=== PATIENT | female | born 1975 | race Hispanic/Latino ===

== ENCOUNTER 2023-06-22 07:00 | Day surgery (SDC) | payer OTHER ==
[2023-06-20 15:18] LABS: BASOPHILS # (AUTO) 0.08 K/uL (0.00-0.20); BASOPHILS % (AUTO) 0.4 % (0.0-5.0); EOSINOPHILS # (AUTO) 0.03 K/uL (0.00-0.70); EOSINOPHILS % (AUTO) 0.1 % (0.0-8.0); HEMATOCRIT 43.2 % (36-48); IMMATURE GRANULOCYTE ABSOLUTE 0.29 K/uL (0-1); LYMPHOCYTES # (AUTO) 3.4 K/uL (1.0-4.8); LYMPHOCYTES % (AUTO) 15.7 % (21.0-51.0); MEAN CORPUSCULAR HGB CONC 32.6 g/dL (32.0-36.0); MEAN CORPUSCULAR VOLUME 88.9 fL (79-99); MONOCYTES % (AUTO) 4.8 % (3.0-13.0); NEUTROPHILS # (AUTO) 16.6 K/uL (1.8-7.7); NEUTROPHILS % (AUTO) 77.6 % (40.0-77.0); PLATELET COUNT (AUTO) 409 K/uL (130-400); RED BLOOD CELL COUNT(AUTO) 4.86 MIL/uL (4.00-5.50); WHITE BLOOD COUNT (AUTO) 21.4 K/uL (4.8-10.8)
[2023-06-20 15:26] LABS: CREATININE 0.7 mg/dL (0.5-1.5); POTASSIUM 4.2 mmol/L (3.5-5.1)
[2023-06-20 15:45] VITALS: BP 140/83; PULSE 81; RESP 18
[~2023-06-22] VITALS: Ht 157.5 cm; Wt 82.8 kg
[2023-06-22] VITALS (17 sets, daily range): BP systolic 99–136; BP diastolic 51–84; PULSE 53–75; RESP 14–20
[~2023-06-22 07:00] MED LIST: INSU100I26 SQ; LOSA100T59 PO; METF-444 PO; METO-408 PO; SEMA3TAB4 PO
[2023-06-22] MEDS ORDERED: CEFAZOLIN SODIUM 2 GM VIAL ONE (07:25)
[2023-06-22] MEDS ORDERED: 0.9%NACL 1000ML 1,000 ML IV ONE (07:25)
[2023-06-22] MEDS ORDERED: PROPOFOL 10 MG/ML 20ML VIAL IV ONE (07:44)
[2023-06-22] MEDS ORDERED: ROCURONIUM 10MG/1ML SYR 10 MG/ML ML ONE (07:44)
[2023-06-22] MEDS ORDERED: LIDOCAINE PF 100MG/5ML (2%) SYRINGE 5ML ONE (07:44)
[2023-06-22] MEDS ORDERED: GLYCOPYRROLATE 1 MG/5 ML SYRINGE ONE (07:44)
[2023-06-22] MEDS ORDERED: MIDAZOLAM HCL 1 MG/ML 2ML VIAL ONE (07:44)
[2023-06-22] MEDS ORDERED: SUCCINYLCHOLINE CHLORIDE 20 MG/ML 10 ML VIAL ONE (07:44)
[2023-06-22] MEDS ORDERED: FENTANYL CITRATE PF 50 MCG/1 ML 2ML VIAL ONE ×2 (07:45→09:33)
[2023-06-22] MEDS ORDERED: PHENYLEPHRINE HCL 10 MG/ML 1ML VIAL IV ONE ×2 (07:48→07:50)
[2023-06-22] MEDS ORDERED: HYDROMORPHONE 1 MG INJ ONE (07:56)
[2023-06-22] MEDS ORDERED: FAMOTIDINE 20MG VIAL IV ONE (07:56)
[2023-06-22] MEDS ORDERED: BUPIVACAINE/PF 0.25% 30ML VIAL IJ ONE (08:28)
[2023-06-22] MEDS ORDERED: ONDANSETRON 4MG INJ ONE (08:31)
[2023-06-22] MEDS ORDERED: NEOSTIGMINE 5MG/5ML SYR IV ONE (08:55)
== END 2023-06-22 11:10 | disposition home or self-care (01) ==
LOC: DAH 07:00
PROVIDERS: ATTEND Surgery
DX: L72.3 Sebaceous cyst (principal); I10 Essential (primary) hypertension; E11.9 Type 2 diabetes mellitus without complications; Z98.890 Other specified postprocedural states; Z82.49 Family history of ischemic heart disease and other diseases of the circulatory system; Z83.3 Family history of diabetes mellitus; Z79.01 Long term (current) use of anticoagulants; Z79.899 Other long term (current) drug therapy
CPT/HCPCS: 93005; 80048; 84703; 85025; 36415; 11406; 82948 ×2; 88304; A6260; A4663; J7030 ×2; A4452; J3490 ×2; J3010 ×2; J2710; J0330; J0665; J2001; J2250; J2704; J2405; J2371 ×2; J0690; A4930; A4215; A4223; A4222; A4221; A4600; J1170